=== PATIENT | female | born 2000 | race Caucasian/White ===

== ENCOUNTER 2024-06-26 11:16 | Emergency (ER) | payer OTHER, SELFPAY ==
[2024-06-26 11:24] VITALS: BP 126/65; PULSE 102; TEMP 37.2; O2SAT 98; BMI 27.4
[2024-06-26 11:51] LABS: Bilirubin Urine NEGATIVE (NEGATIVE); Blood Urine LARGE (NEGATIVE); Clarity Urine CLEAR (CLEAR); Color Urine YELLOW (YELLOW); Glucose Urine UA NEGATIVE (NEGATIVE); Ketones Urine 40 mg/dL (NEGATIVE); Leukocyte Esterase Urine NEGATIVE (NEGATIVE); Nitrite Urine NEGATIVE (NEGATIVE); Protein Urine NEGATIVE (NEG/TRACE); Specific Gravity Urine 1.015 (1.005-1.025); Urine Microscopic Indicated YES; Urobilinogen Urine 0.2 EU/dL (0.2-1.0)
[2024-06-26 11:52] LABS: HCG Qualitative Urine* NEGATIVE (NEGATIVE); Internal Control Within Normal Limits
--- NOTE | 2024-06-26 11:59 | ED.GENADUL1 ---
HPI HPI - General Adult General Chief complaint: Nausea/Vomiting/Diarrhea Stated complaint: VOMITTING Time Seen by Provider: 06/26/24 11:53 Source: patient Mode of arrival: walk-in Limitations: no limitations History of Present Illness HPI narrative: This 23-year-old female presents to the ED stating that she has had 4 episodes of vomiting since last night prior to which she had eaten food from a fast food restaurant. She reports nausea. She denies diarrhea, chills or fever, abdominal pain or urinary symptoms. She is on Suboxone and has not run out of it. In the past she has had UTI associated with similar symptoms. Related Data Home Medications ?Medication ?Instructions ?Recorded ?Confirmed buprenorphine 8 mg-naloxone 2 mg film 06/26/24 sublingual film ondansetron HCl 4 mg tablet 4 mg PO DAILY 06/26/24 06/26/24 Previous Rx's ?Medication ?Instructions ?Recorded ondansetron 4 mg disintegrating 4 mg PO Q6H PRN nausea and 06/26/24 tablet vomiting #10 tabs Allergies Allergy/AdvReac Type Severity Reaction Status Date / Time No Known Drug Allergies Allergy Verified 06/26/24 11:23 Opioid HPI Opioid Management Most Recent Opioid Data: No Data to Display Review of Systems ROS Status of ROS 10 or more systems reviewed and unremarkable except as noted in history and below PFSH PFSH Social History Little interest or pleasure in doing things: not at all Feeling down, depressed, or hopeless: not at all Exam Narrative Exam Narrative: Afebrile and nondistressed. Mildly tachycardic. HEENT exam is normal to inspection. Neck is supple. Lung sounds are clear to auscultation bilaterally with good air entry. Heart has regular rate and rhythm. Abdomen soft without tenderness. There are no masses or organomegaly. Lower extremities are warm and dry. She did not have calf tenderness or leg swelling. Speech and mentation are clear and intact. There is no facial asymmetry. She moves all extremities actively. Constitutional Vital Signs, click to edit/add: Last Vital Signs Temp 99.0 F 06/26/24 11:24 Pulse 102 H 06/26/24 11:24 Resp 18 06/26/24 11:24 BP 126/65 06/26/24 11:24 Pulse Ox 98 06/26/24 11:24 O2 Del Method Room Air 06/26/24 11:24 Course Vital Signs Vital signs: Vital Signs Temperature 99.0 F 06/26/24 11:24 Pulse Rate 102 H 06/26/24 11:24 Respiratory Rate 18 06/26/24 11:24 Blood Pressure 126/65 06/26/24 11:24 Pulse Oximetry 98 06/26/24 11:24 Oxygen Delivery Method Room Air 06/26/24 11:24 Temperature 99.0 F 06/26/24 11:24 Pulse Rate 102 H 06/26/24 11:24 Respiratory Rate 18 06/26/24 11:24 Blood Pressure 126/65 06/26/24 11:24 Pulse Oximetry 98 06/26/24 11:24 Oxygen Delivery Method Room Air 06/26/24 11:24 Medical Decision Making MDM Narrative Medical decision making narrative: Patient presents with nausea and vomiting without a good explanation for what may have triggered it. She is on opioid replacement therapy but it looks like she has not run out of her medication. Her evaluation does not show signs of dehydration and she has been treated with a liter of IV fluids. Her vomiting seems to either have slowed down or subsided. She has not had any vomiting in the ED. Upon discharge she is placed on Zofran and is to return anytime for worsening symptoms. Lab Data Labs: Lab Results 06/26/24 06/26/24 Range/Units 11:25 12:10 WBC 7.2 (4.0-11.0) 10^3/uL RBC 4.72 (4.20-5.40) 10^6/uL Hgb 13.4 (12.0-16.0) g/dL Hct 40.2 (36.0-48.0) % MCV 85.2 (81.0-99.0) fL MCH 28.4 (26.7-34.0) pg MCHC 33.3 (29.9-35.2) g/dL RDW 13.2 (11.0-15.0) % Plt Count 213 (150-450) 10^3/uL MPV 10.1 (9.5-13.5) fL Neut % (Auto) 90.5 H (43.0-75.0) % Lymph % (Auto) 5.4 L (20.5-60.0) % Custer % (Auto) 3.5 (1.7-12.0) % Eos % (Auto) 0.0 L (0.9-7.0) % Baso % (Auto) 0.3 (0.2-2.0) % Neut # (Auto) 6.5 (1.4-6.5) 10^3/uL Lymph # (Auto) 0.4 L (1.2-3.8) 10^3/uL Custer # (Auto) 0.3 (0.3-0.8) 10^3/uL Eos # (Auto) 0.0 (0.0-0.7) 10^3/uL Baso # (Auto) 0.0 (0.0-0.1) 10^3/uL Abs Immat Gran (auto) 0.02 (0.00-0.03) 10^3/uL Imm/Tot Granulo (auto) 0.3 (0.0-0.5) % Sodium 140 (136-145) mmol/L Potassium 3.7 (3.5-5.1) mmol/L Chloride 102 (98-107) mmol/L Carbon Dioxide 27.5 (21.0-32.0) mmol/L Anion Gap 14.2 BUN 9.0 (7.0-18.0) mg/dL Creatinine 0.72 (0.55-1.02) mg/dL Est GFR ( Amer) >60 (>=60 mL/min/1.73m^2) Est GFR (Non-Af Amer) >60 (>=60 mL/min/1.73m^2) BUN/Creatinine Ratio 12.5 Glucose 113 H (74-106) mg/dL Calcium 9.0 (8.5-10.1) mg/dL Total Bilirubin 0.8 (0.2-1.0) mg/dL AST 18 (15-37) U/L ALT 22 (14-59) U/L Alkaline Phosphatase 72 (46-116) U/L Total Protein 7.7 (6.4-8.2) g/dL Albumin 3.9 (3.4-5.0) g/dL Globulin 3.8 g/dL Albumin/Globulin Ratio 1.0 Lipase 13.0 L (16.0-77.0) U/L Urine Color Yellow (YELLOW) Urine Clarity Clear (CLEAR) Urine pH 6.0 (5.0-9.0) Ur Specific Pinson 1.015 (1.005-1.025) Urine Protein Negative (NEG/TRACE) mg/dL Urine Glucose (UA) Negative (NEGATIVE) mg/dL Urine Ketones 40 A (NEGATIVE) mg/dL Urine Occult Blood Large A (NEGATIVE) Urine Nitrite Negative (NEGATIVE) Urine Bilirubin Negative (NEGATIVE) Urine Urobilinogen 0.2 (0.2-1.0) EU/dL Ur Leukocyte Esterase Negative (NEGATIVE) Urine RBC 5-10 A (0-2) #/HPF Urine WBC 0-2 A (NONE SEEN) #/HPF Ur Squamous Epith Cells Few A (NONE/RARE) #/LPF Urine Crystals None seen (None Seen) #/HPF Urine Bacteria Trace A (NONE SEEN) #/HPF Urine Casts None seen (NONE SEEN) #/LPF Urine Mucus None seen (NONE SEEN) Ur Culture Indicated? No Urine HCG, Qual Negative (NEGATIVE) Discharge Plan Discharge Chief Complaint: Nausea/Vomiting/Diarrhea Clinical Impression: Vomiting Qualifiers: Vomiting type: unspecified Nausea presence: with nausea Qualified Code(s): R11.2 - Nausea with vomiting, unspecified Patient Disposition: Home, Self-Care Time of Disposition Decision: 13:04 Condition: Good Mode of Transportation: Private Vehicle Prescriptions / Home Meds: New ondansetron 4 mg tablet,disintegrating 4 mg PO Q6H PRN (Reason: nausea and vomiting) Qty: 10 0RF No Action buprenorphine-naloxone 8-2 mg film ondansetron HCl 4 mg tablet 4 mg PO DAILY Print Language: Tristanian Instructions: Acute Nausea and Vomiting (ED) Additional Instructions: Drink extra fluids. Zofran for nausea and vomiting as needed. Return for worsening symptoms. Referrals: Physician,Non-Staff, MD [Primary Care Provider] - 1 week
[2024-06-26 12:22] LABS: Bacteria Urine TRACE #/HPF (NONE SEEN); Mucus Urine NONE SEEN (NONE SEEN); Squamous Epithelial Cell Urine FEW #/LPF (NONE/RARE); WBC Urine 0-2 #/HPF (NONE SEEN)
[2024-06-26 12:23] LABS: Cast Seen? NONE SEEN #/LPF (NONE SEEN); Crystals Seen? None Seen #/HPF (None Seen)
[2024-06-26 12:23] LABS: Basophils Percent Auto 0.3 % (0.2-2.0); Hematocrit 40.2 % (36.0-48.0); Hemoglobin 13.4 g/dL (12.0-16.0); Immature Granulocytes Abs Auto 0.02 10^3/uL (0.00-0.03); Immature Granulocytes Pct Auto 0.3 % (0.0-0.5); Lymphocytes Absolute Auto 0.4 10^3/uL (1.2-3.8); Lymphocytes Percent Auto 5.4 % (20.5-60.0); Mean Corpuscular HGB Conc 33.3 g/dL (29.9-35.2); Mean Corpuscular Hemoglobin 28.4 pg (26.7-34.0); Mean Corpuscular Volume 85.2 fL (81.0-99.0); Mean Platelet Volume 10.1 fL (9.5-13.5); Monocytes Absolute Auto 0.3 10^3/uL (0.3-0.8); Monocytes Percent Auto 3.5 % (1.7-12.0); Neutrophils Absolute Auto 6.5 10^3/uL (1.4-6.5); Neutrophils Percent Auto 90.5 % (43.0-75.0); Platelet Count 213 10^3/uL (150-450); Red Blood Count 4.72 10^6/uL (4.20-5.40); Red Cell Distribution Width 13.2 % (11.0-15.0); White Blood Count 7.2 10^3/uL (4.0-11.0)
[2024-06-26 12:24] LABS: Urine Culture Indicated NO
[2024-06-26] MEDS: 0.9 % SODIUM CHLORIDE 1,000 ML 1000 ML IV (12:24)
[2024-06-26] MEDS: ONDANSETRON PF 4 MG/2 ML VIAL IV (12:28)
[2024-06-26 12:38] LABS: Alanine Aminotransferase 22 U/L (14-59); Albumin Level 3.9 g/dL (3.4-5.0); Alkaline Phosphatase 72 U/L (46-116); Anion Gap 14.2; Aspartate Amino Transferase 18 U/L (15-37); BUN Creatinine Ratio 12.5; Bilirubin Total 0.8 mg/dL (0.2-1.0); Carbon Dioxide 27.5 mmol/L (21.0-32.0); Chloride 102 mmol/L (98-107); Estimated GFR (African America >60 (>=60 mL/min/1.73m^2); Estimated GFR (Non-African Ame >60 (>=60 mL/min/1.73m^2); Globulin 3.8 g/dL; Glucose 113 mg/dL (74-106); Potassium 3.7 mmol/L (3.5-5.1); Sodium 140 mmol/L (136-145); Total Protein 7.7 g/dL (6.4-8.2)
[2024-06-26 13:23] VITALS: BP 117/67; PULSE 83; TEMP 37.4; O2SAT 99
== END 2024-06-26 13:26 | disposition home or self-care (01) ==
PROVIDERS: Emergency Provider Emergency Medicine
DX: R11.2 Nausea with vomiting, unspecified (principal); Z87.442 Personal history of urinary calculi; F11.20 Opioid dependence, uncomplicated
CPT/HCPCS: 36415; 80053; 81001; 83690; 84703; 85025; 96361; 96374; 99284; J2405

== ENCOUNTER 2024-10-24 19:24 | Emergency (ER) | payer OTHER, SELFPAY ==
[2024-10-24 19:28] VITALS: BP 136/80; PULSE 65; TEMP 36.5; O2SAT 100; BMI 31.1
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
--- NOTE | 2024-10-24 19:53 | CT_ITS ---
The [address] [address] Patient Name: CURTIS MANN MRN: [id number] date: 2000 Sex: F Assigned Patient Location: ER Current Patient Location: ER Accession/Order Number: [id number] Exam Date: 10/24/2024 21:26 Report Date: 10/24/2024 21:30 At the request of: JERMAINE ARCHER MD Procedure: CT lumbar spine wo con CT LUMBAR SPINE WITHOUT CONTRAST TECHNIQUE: Axial acquisition of the lumbar spine obtained with the sagittal and coronal reconstructed imaging.The CT exam was performed using one or more the following dose reduction techniques: Automated exposure control, adjustment of the MA and/or Kv according to patient size, or use of the iterative reconstruction technique. HISTORY: Right lower back pain radiation to the buttocks and right hip. 4 days duration COMPARISON: None FINDINGS: The last fully segmented vertebral pair is operationally defined as L5/S1. POST SURGERY CHANGES: None BONY ALIGNMENT: Adequate bony alignment identified. SPINAL CANAL:Mild narrowing of the central canals from L3 to S1. LUMBAR FRACTURE: None BONY LESIONS: None KIDNEYS: No hydronephrosis is identified. AORTA: No aortic aneurysm is seen. Mild L4-5 and L5 1 disc space narrowing. Mild facet degeneration L3-4 diffuse disc bulge. L4-5 midline disc protrusion L5-S1 midline disc protrusion Assessment of disc herniation limited with CT examination. CT/CT lumbar spine wo con IMPRESSION:Lower lumbar degeneration. Disc herniations at the L3-4, L4-5 and L5-S1 level. MRI can better assess disc herniation. Impression dictated by: Ish Holloway M.D. 10/24/2024 9:30 PM Dictation Location: [employer] Electronically authenticated by: [id number] Y Date: 10/24/2024 21:30
--- NOTE | 2024-10-24 19:56 | ED_ITS ---
HPI HPI - Back Pain/Injury General Chief Complaint: Back Pain/Injury Stated Complaint: BACK PAIN Time Seen by Provider: 10/24/24 19:49 Source: patient Mode of arrival: walk-in History of Present Illness HPI Narrative: back pain for 4 days. Denies injury. Points to lower lumbar sacral area as site of pain and right buttocks. pain radiates down to her knee when she is lying down. when she stands it radiates down to her right foot. She describes getting off the couch by rolling off onto her knees and then pushing herself up. No fever or nausea. No bowel or urinary complaints Related Data Home Medications ?Medication ?Instructions ?Recorded ?Confirmed buprenorphine 8 mg-naloxone 2 mg 1 film buccal BID 10/24/24 sublingual film lidocaine 5 % topical patch 1 patch topical Q24H 10/2410/24/24 methylprednisolone 4 mg tablets in 4 mg PO DAILY 10/2410/24/24 a dose pack Previous Rx's ?Medication ?Instructions ?Recorded ondansetron 4 mg disintegrating 4 mg PO Q6H PRN nausea and 06/26/24 tablet vomiting #10 tabs Allergies Allergy/AdvReac Type Severity Reaction Status Date / Time No Known Drug Allergies Allergy Verified 06/26/24 11:23 Opioid HPI Opioid Management Most Recent Opioid Data: 2 Last Pain Scale 10 Today, 19:37 Review of Systems 2 ROS0 Status of ROS 10 or more systems reviewed and unremark able except as noted in history and below PFSH PFSH Social History Little interest or pleasure in doing things: not at all Feeling down, depressed, or hopeless: not at all Exam Constitutional Vital Signs, click to edit/add: Last Vital Signs Temp 97.7 F 10/24/24 19:28 Pulse 65 10/24/24 19:28 Resp 20 10/24/24 19:28 BP 136/80 10/24/24 19:28 Pulse Ox 100 10/24/24 19:28 O2 Del Method Room Air 10/24/24 19:28 Common normals: average body habitus, oriented x3, healthy appearing, alert and well nourished General appearance: in distress HENMT Common normals: normocephalic and head/scalp atraumatic Eye Common normals: PERRL and EOMs intact bilaterally Respiratory Common normals: normal respiratory effort, no retractions, no use of accessory muscles and clear to auscultation bilaterally Cardio Common normals: regular rate, regular rhythm, S1 normal heart sound and S2 normal heart sound GI Common normals: Normal to inspection, nondistended, normoactive bowel sounds present, soft to palpation and non-tender Back & Pelvis Back image (female): 2 1. tender Extremity Common normals: normal to inspection and full ROM Other: right leg lift increases pain Neuro Common normals: oriented x3, CN's II-XII intact bilaterally, moves all extremities, no focal motor deficits and no sensory deficits noted Psych Appearance: grossly normal Course Vital Signs Vital signs: Vital Signs Temperature 97.7 F 10/24/24 19:28 Pulse Rate 65 10/24/24 19:28 Respiratory Rate 20 10/24/24 19:28 Blood Pressure 136/80 10/24/24 19:28 Pulse Oximetry 100 10/24/24 19:28 Oxygen Delivery Method Room Air 10/24/24 19:28 Temperature 97.7 F 10/24/24 19:28 Pulse Rate 65 10/24/24 19:28 Respiratory Rate 20 10/24/24 19:28 Blood Pressure 136/80 10/24/24 19:28 Pulse Oximetry 100 10/24/24 19:28 Oxygen Delivery Method Room Air 10/24/24 19:28 MDM - Back Pain/Injury MDM Narrative Medical decision making narrative: presents with right sciatica pain. pain increased over past 4 days. Exam findings c/w sciatica. WBC and CRP WNL. CT with findings of disc herniation. Patient treated with cocktail in the ER and pain is now more tolerable. Discharged and advised to follow up with the pain clinic. Provided a prescription of prednisone Lab Data Labs: Lab Results 10/24/24 10/24/24 Range/Units 20:15 21:15 WBC 9.9 (4.0-11.0) 10^3/uL RBC 4.89 (4.20-5.40) 10^6/uL Hgb 13.9 (12.0-16.0) g/dL Hct 41.2 (36.0-48.0) % MCV 84.3 (81.0-99.0) fL MCH 28.4 (26.7-34.0) pg MCHC 33.7 (29.9-35.2) g/dL RDW 12.6 (11.0-15.0) % Plt Count 227 (150-450) 10^3/uL MPV 11.1 (9.5-13.5) fL Neut % (Auto) 92.0 H (43.0-75.0) % Lymph % (Auto) 6.4 L (20.5-60.0) % Robertson % (Auto) 1.0 L (1.7-12.0) % Eos % (Auto) 0.1 L (0.9-7.0) % Baso % (Auto) 0.2 (0.2-2.0) % Neut # (Auto) 9.1 H (1.4-6.5) 10^3/uL Lymph # (Auto) 0.6 L (1.2-3.8) 10^3/uL Robertson # (Auto) 0.1 L (0.3-0.8) 10^3/uL Eos # (Auto) 0.0 (0.0-0.7) 10^3/uL Baso # (Auto) 0.0 (0.0-0.1) 10^3/uL Abs Immat Gran (auto) 0.03 (0.00-0.03) 10^3/uL Imm/Tot Granulo (auto) 0.3 (0.0-0.5) % ESR 19 (<=20) mm/hr Sodium 138 (136-145) mmol/L Potassium 3.8 (3.5-5.1) mmol/L Chloride 100 (98-107) mmol/L Carbon Dioxide 28.2 (21.0-32.0) mmol/L Anion Gap 13.6 BUN 8.0 (7.0-18.0) mg/dL Creatinine 0.53 L (0.55-1.02) mg/dL Est GFR ( Amer) >60 (>=60 mL/min/1.73m^2) Est GFR (Non-Af Amer) >60 (>=60 mL/min/1.73m^2) BUN/Creatinine Ratio 15.1 Glucose 123 H (74-106) mg/dL Lactate 1.0 (0.4-2.0) mmol/L Calcium 9.7 (8.5-10.1) mg/dL Total Bilirubin 0.8 (0.2-1.0) mg/dL AST 20 (15-37) U/L ALT 24 (14-59) U/L Alkaline Phosphatase 77 (46-116) U/L C-Reactive Protein <0.50 (<=0.50) mg/dL Total Protein 8.7 H (6.4-8.2) g/dL Albumin 4.5 (3.4-5.0) g/dL Globulin 4.2 g/dL Albumin/Globulin Ratio 1.1 Serum HCG, Qual Negative (NEGATIVE) Urine Color Lt. yellow (YELLOW) Urine Clarity Sl cloudy (CLEAR) Urine pH 6.5 (5.0-9.0) Ur Specific [place] 1.010 (1.005-1.025) Urine Protein Negative (NEG/TRACE) mg/dL Urine Glucose (UA) Negative (NEGATIVE) mg/dL Urine Ketones 15 A (NEGATIVE) mg/dL Urine Occult Blood Negative (NEGATIVE) Urine Nitrite Negative (NEGATIVE) Urine Bilirubin Negative (NEGATIVE) Urine Urobilinogen 0.2 (0.2-1.0) EU/dL Ur Leukocyte Esterase Negative (NEGATIVE) Urine RBC 0-2 (0-2) #/HPF Urine WBC 0-2 A (NONE SEEN) #/HPF Ur Squamous Epith Cells Moderate A (NONE/RARE) #/LPF Urine Crystals None seen (None Seen) #/HPF Urine Bacteria Trace A (NONE SEEN) #/HPF Urine Casts None seen (NONE SEEN) #/LPF Urine Mucus None seen (NONE SEEN) Ur Culture Indicated? No Imaging Data Chest x-ray: Radiologist's impression: ITS Impressions Lumbar Spine CT 10/24/24 19:53 IMPRESSION:Lower lumbar degeneration. Disc herniations at the L3-4, L4-5 and L5-S1 level. MRI can better assess disc herniation. Impression dictated by: Ish Holloway M.D. 10/24/2024 9:30 PM Dictation Location: [place] [address] Electronically authenticated by: [id number] Y Date: 10/24/2024 21:30 Discharge Plan Discharge Chief Complaint: Back Pain/Injury Clinical Impression: Sciatica Patient Disposition: Home, Self-Care Prescriptions / Home Meds: No Action buprenorphine-naloxone 8-2 mg film 1 film buccal BID ondansetron 4 mg tablet,disintegrating 4 mg PO Q6H PRN (Reason: nausea and vomiting) Qty: 10 0RF lidocaine 5 % adhesive patch,medicated 1 patch topical Q24H methylprednisolone 4 mg tablets,dose pack 4 mg PO DAILY Patient Comments: as directed Print Language: Maltese Instructions: Sciatica (ED) Additional Instructions: follow up with pain specialist and with your family doctor Referrals: RAZIA MCKEON [Primary Care Provider, GENERAL EDUCATION PROFESSOR] - 1 week
[2024-10-24] MEDS: MAGNESIUM SULFATE IN WATER 2 GM/50 ML PREMIX IV (20:13)
[2024-10-24] MEDS: METHYLPREDNISOLONE SOD SUCC PF 125 MG/2 ML VIAL IVP (20:13)
[2024-10-24 20:32] LABS: Hematocrit 41.2 % (36.0-48.0); Hemoglobin 13.9 g/dL (12.0-16.0); Immature Granulocytes Abs Auto 0.03 10^3/uL (0.00-0.03); Immature Granulocytes Pct Auto 0.3 % (0.0-0.5); Lymphocytes Absolute Auto 0.6 10^3/uL (1.2-3.8); Mean Corpuscular HGB Conc 33.7 g/dL (29.9-35.2); Mean Corpuscular Hemoglobin 28.4 pg (26.7-34.0); Mean Corpuscular Volume 84.3 fL (81.0-99.0); Platelet Count 227 10^3/uL (150-450); Red Blood Count 4.89 10^6/uL (4.20-5.40); White Blood Count 9.9 10^3/uL (4.0-11.0)
[2024-10-24 20:44] LABS: Alanine Aminotransferase 24 U/L (14-59); Albumin Globulin Ratio 1.1; Albumin Level 4.5 g/dL (3.4-5.0); Alkaline Phosphatase 77 U/L (46-116); Anion Gap 13.6; Aspartate Amino Transferase 20 U/L (15-37); Blood Urea Nitrogen 8.0 mg/dL (7.0-18.0); Calcium 9.7 mg/dL (8.5-10.1); Carbon Dioxide 28.2 mmol/L (21.0-32.0); Chloride 100 mmol/L (98-107); Estimated GFR (African America >60 (>=60 mL/min/1.73m^2); Estimated GFR (Non-African Ame >60 (>=60 mL/min/1.73m^2); Globulin 4.2 g/dL; Glucose 123 mg/dL (74-106); Potassium 3.8 mmol/L (3.5-5.1); Sodium 138 mmol/L (136-145); Total Protein 8.7 g/dL (6.4-8.2)
[2024-10-24 20:49] LABS: Lactate/Lactic Acid 1.0 mmol/L (0.4-2.0)
[2024-10-24] MEDS: KETOROLAC TROMETHAMINE 30 MG/ML VIAL IVP (21:39)
[2024-10-24 21:47] LABS: Glucose Urine UA NEGATIVE (NEGATIVE)
[2024-10-24 21:55] LABS: Cast Seen? NONE SEEN #/LPF (NONE SEEN); Crystals Seen? None Seen #/HPF (None Seen); Urine Culture Indicated NO
== END 2024-10-24 22:34 | disposition home or self-care (01) ==
PROVIDERS: Emergency Provider Internal Medicine; PCP Nurse Practitioner
DX: M54.30 Sciatica, unspecified side (principal); M51.369 Other intervertebral disc degeneration, lumbar region without mention of lumbar back pain or lower extremity pain; M54.50 Low back pain, unspecified; M54.16 Radiculopathy, lumbar region
CPT/HCPCS: 36415; 72131; 80053; 81001; 83605; 84703; 85025; 85652; 86140; 96365; 96375; 99285; J1885; J2919; J3475

== ENCOUNTER 2025-01-18 15:58 | Emergency (ER) | payer OTHER, SELFPAY ==
--- OUTSIDE RECORDS SUMMARY | 2025-01-08 07:30 | XMS_ITS | Encounter Summary ---
Author Organization [facility] tem Address [id number] [address] [place] [address] Care Team Providers Care Yard Coordinator Name Role Phone Stephany Cleo Walker APRN-CORE MANAGER Primary Care Provider [phone] Reason for Visit * ReasonCommentsBack Pain Encounter Details DateTypeDepartmentCare Team (Latest Contact Info)Xhxcktwtmvn16/28/2025 8:30 AM EDTOffice Visit [facility] [address] [place] [id number] Alex Castelan PA [address] [facility] [place], [place] [id number] Lumbosacral spondylosis without myelopathy (Primary Dx) Social History Tobacco UseTypesPacks/DayYears UsedDateSmoking Tobacco: Every DayCigarettes Smokeless Tobacco: NeverAlcohol UseStandard Drinks/WeekCommentsNo0 (1 standard drink = 0.6 oz pure alcohol)ChildcareAnswerDate RecordedChildcareUnknown 08/21/2018EmploymentAnswerDate EsuficoyVhvopygkhgQxxpkea65/10/2019Hunger ScreeningAnswerDate RecordedWithin the past 12 months we worried whether our food would run out before we got money to buy more.Never True01/08/2025Within the past 12 months the food we bought just didn't last and we didn't have money to get more.Never True01/08/2025Purpose - LifeAnswerDate RecordedPurpose and direction in bywzMlutcul47/10/2021CommentsNoSex and Gender Information ValueDate RecordedSex Assigned at BirthNot on fileLegal DcrKxicya60/04/2015 12:03 PM EDTGender IdentityNot on fileSexual OrientationNot on filedocumented as of this encounter Last Filed Vital Signs Vital SignReadingTime TakenCommentsBlood Mbiyhich846/6610 8:57 AM EDT Gzpse31878/28/2025 8:57 AM EDTTemperature--Respiratory Dcvq0966 8:57 AM EDTOxygen Agqkzjkydt48%01/08/2025 8:57 AM EDTInhaled Oxygen Concentration-- Mvfnbr71.4 kg (186 lb)01/08/2025 8:57 AM EDTHeight--Body Mass Index30.95 11/08/2024 9:19 AM EDTdocumented in this encounter Progress Notes * RUBEN Hernandez - 01/08/2025 8:30 AM EDT [facility] [address] [place] [address] Patient: Lynette James Sex: female : 2000 Age: 24 y.o. PCP: CLEO MCKEON, RONY-CORE MANAGER 01/08/2025 Lynette James is here for a(n) follow up from physical therapy. Patient reports physical therapy and medrol dose pack seemed to help significantly. Currently has no pain but it can increasewith normal daily activities. Chief Complaint Patient presents with Back Pain HPI: PT 8 visits 10/2024 Total Rehab Back Pain Chronicity: 6 years with increased pain since 10/18/2024. The current episode started more than 1 year ago. The problem occurs intermittently. The problem has been gradually improving since onset. The pain is present in the lumbar spine and sacro-iliac. The pain does not radiate. The pain is at a severity of 0/10 (can get up to 10/10 with ADLs). The patient is experiencing no pain (but has been severe). The pain is Worse during the night. The symptoms are aggravated by standing, coughing, twisting and bending. Stiffness is present All day. Associated symptoms include numbness (RLE), tingling (RLE) and weakness (RLE). Pertinent negatives include no bladder incontinence, bowel incontinence or leg pain. (When pain is severe certain movement gets shocking sensation to joints in right leg) She has tried chiropractic manipulation, ice, heat and NSAIDs (mobic, ASA,Flexeril mild , MDP-mod) for the symptoms. The treatment provided mild relief. The effect of pain on patient's ADLS: Moderate Impairment. Past Medical History: Diagnosis Date Low back pain Past Surgical History: Procedure Laterality Date WISDOM TOOTH EXTRACTION No Known Allergies History reviewed. No pertinent family history. Social History Socioeconomic History Marital status: Single Spouse name: Not on file Number of children: Not on file Years of education: Not on file Highest education level: Not on file Occupational History Not on file Tobacco Use Smoking status: Every Day Current packs/day: 0.10 Types: Cigarettes Smokeless tobacco: Never Substance and Sexual Activity Alcohol use: No Drug use: No Sexual activity: Yes Other Topics Concern Not on file Social History Narrative Not on file Social Drivers of Health Financial Resource Strain: Not on file Food Insecurity: No Food Insecurity (01/08/2025) Hunger Screening Food Insecurity - Worry: Never True Food Insecurity - Inability: Never True Transportation Needs: Not on file Physical Activity: Not on file Stress: Not on file Social Connections: Not on file Interpersonal Safety: Not on file Housing Instability: Not on file Review of Systems Constitutional: Negative. HENT: Positive for congestion and sore throat. Eyes: Negative. Respiratory: Negative. Cardiovascular: Negative. Gastrointestinal: Negative. Negative for bowel incontinence. Endocrine: Negative. Genitourinary: Negative. Negative for bladder incontinence. Musculoskeletal: Positive for back pain. Skin: Negative. Allergic/Immunologic: Negative. Neurological: Positive for tingling (RLE), weakness (RLE) and numbness (RLE). Hematological: Negative. Psychiatric/Behavioral: Negative. Vital Signs: BP 125/66 (BP Site: Left Arm, BP Postition: Sitting) Pulse 114 Resp 18 Wt 84.4 kg (186 lb) SpO2 99% BMI 30.95 kg/m?? Physical Exam: GENERAL - Healthy patient that appears stated age. HEENT - Normocephalic / Atraumatic, Extraoccular movements intact, trachea midline, thyroid within normal limits. CV - pulse regular, Warm extremities with appropriate color of nailbeds. RESP - No obvious wheezing, No Shortness of Breath, No overexertion response to exam maneuvers. COORDINATION - remains intact. PSYCH - Alert and Oriented x4, Attentive and appropriate, constitutionally normal, displays normal mood and affect per situation, answered questions appropriately during examination, demonstrated appropriate attention during discussion, demonstrated appropriate cognitive reasoning and understandingof the medical condition by asking appropriate questions regarding the diagnosis and risks/benefits/alternatives of treatment modalities. No obvious deficits in memory, reasoning, or intellect. Lumbar: SKIN - No rashes or bruising in the area of the patient???s pain. LYMPH NODES - demonstrate no obvious enlargement. EXTREMITIES - Lower extremities are warm, with minimal edema and palpable pulses. No significant tenderness to palpation noted in the lumbar spine and paraspinal musculature. Mild pain is elicited with flexion, extension, and lateral rotation of the lumbar spine. Range of motion is not diminished with these motions. Facet palpation is negative for significant pain and facet loading maneuvers elicit only mild pain that is not concordant with the patient???s normal pain complaint s. STRENGTH - noted to be 5 out of 5 all muscle groups bilateral lower extremities including muscles involving hip flexion and abduction, knee flexion and extension, as well as foot dorsiflexion and plantarflexion. No notable atrophy, fasciculations or spasm. SENSORY - No notable sensory deficits in the bilateral lower extremities to touch or pinprick in all dermatomal distributions. Straight Leg Raise is negative bilaterally. Gait is normal. Assessment/Treatment Plan: Lynette was seen today for back pain. Diagnoses and all orders for this visit: Lumbosacral spondylosis without myelopathy Other orders - methylPREDNISolone (MEDROL, STEPHANIE,) 4 mg tablet; follow package directions Medrol dose pack Monitor Follow up PRN The medications I have prescribed have been reviewed for medication interactions/contraindications and/or for upcoming procedures: continue current medication regimen without any changes. DISCUSSION: Treatment options discussed with patient and all questions answered to patient's satisfaction. Discussed the rules and regulations surrounding prescription of opioids and compliance at length. Failure to follow the rules and regulation will result in tapering and discontinuation of medications if applicable. Prescribed medication that requires intensive monitoring for toxicity We do not currently prescribeany controlled substance from this practice. Treatment plans discussed but not opted for at this time: Lumbar MRI. Patient would like to proceed with the current outlined treatment plan before moving forward with any other options. At this time it does appear that the patient???s pain is under adequate control with conservative care. It is felt that we should continue this approach and continue to monitor these symptoms and address them again in the future if they become more problematic. This approach was discussed with the patient and they are in agreement. The spine model was demonstrated and Xray was reviewed and used to explain the condition. OARRS: Reviewed. Scribe Statement: IYesika CNA, scribed for and in the presence of RUBEN HERNANDEZ who performed the above service. Yesika Simon CNA 01/08/25 0929 RUBEN Hernandez 01/08/25 1147 documented in this encounter Plan of Treatment Not on file documented as of this encounter Visit Diagnoses Diagnosis Lumbosacral spondylosis without myelopathy- Primary documented in this encounter Care Teams Team MemberRelationshipSpecialtyStart DateEnd Date Cleo Mckeon, ANGLE DOZER OPERATOR-CORE MANAGER [address] [place] [address] PCP - GeneralNurse Practitioner10/25/24documented as of this encounter
--- OUTSIDE RECORDS SUMMARY | 2025-01-08 22:59 | XMS_ITS | Continuity of Care Document ---
Author Organization [facility] Address Unknown Care Team Providers Care Equine Vet Name Role Phone Cleo Hammond Primary Care Physician [phone] Encounter FT_FIN [id number] Date(s): 01/08/25 - 01/08/[address] [address] Discharge Disposition: Home (Routine DC) Attending Physician: ASAEL PLASCENCIA CNP Admitting Physician: ASAEL PLASCENCIA CNP Referring Physician: ASAEL PLASCENCIA CNP Encounter Type: Outpatient Allergies, Adverse Reactions, Alerts No Known Medication Allergies Treatment Plan Future Scheduled Tests Radiology* MA Mamm Screen w/CAD if perf and 3D Biran 11/28/24 Medications buprenorphine-naloxone 8 mg-2 mg sublingual film 1 EA, SubLingual, Daily, Refill(s) 0 Start Date: 11/02/24 Status: Ordered Medication Dispense Status: Completed Total Allowed Fills: 1 Fills Dispensed: 0 meloxicam 15 mg Tab 15 mg = 1 tab(s), Oral, Daily, # 30 tab(s), Refills(s) 0, Pharmacy: [id number], [id number], cm, 11/02/24 11:17:00 EDT, Height/Length Dosing, 79.6, kg, 11/02/24 11:17:00 EDT, Weight Dosing Start Date: 11/02/24 Status: Ordered Medication Dispense Status: Completed Quantity: 30.0 Unit: tab(s) Total Allowed Fills: 1 Fills Dispensed: 0 Indications: Personal history of nicotine dependence; Body mass index [BMI] 29.0-29.9, adult; Otherintervertebral disc displacement, lumbar region; Problem List ConditionConfirmationCourseEffective DatesStatusHealth StatusInformantLumbar herniated discConfirmedActive Social History Social History TypeResponseSmoking StatusFormer smoker, quit more than 30 days ago; Tobacco Use: stopped 2023;Never; Type: Cigarettes; Ready to change: No; Concerns about tobacco use in household: No; Smoking Cessation Yes entered on: 11/28/24Birth SexFemaleSex RepresentationFemale (finding) Patient Care team information Care Team Personnel Name: Cleo Genao Position: [facility] Ambulatory - Primary Care - BEBO Member Role: Primary Care Physician Address: [address] [place] [address]- Telecom: Care Team Related Persons Name: June Name: June Insurance Providers Guarantor name: CURTIS Funk [facility]ly [facility] Information #: 1 Payer: [facility] Payer Identifier: [id number] Member Number: [id number] Group Number: [id number] Subscriber Identifier: [id number] Relationship to Subscriber: self Coverage Type: MEDICAID Coverage Verification Date: 25 Telecom: [phone] Address: [address]
[2025-01-18 16:05] VITALS: BP 107/77; PULSE 102; TEMP 38; O2SAT 96; BMI 30.6
--- NOTE | 2025-01-18 16:20 | XR_ITS ---
[place] [id number] Patient Name: CURTIS MANN MRN: [id number] date: 2000 Sex: F Assigned Patient Location: ER Current Patient Location: ED.MAIN Accession/Order Number: [id number] Exam Date: 01/18/2025 16:33 Report Date: 01/18/2025 16:52 At the request of: MAGAN MIRANDA Procedure: XR chest 1V Plain film chest Single view HISTORY: Cough and fever COMPARISON: 04/09/2016 FINDINGS: SUPPORT DEVICES: None POSTSURGICAL CHANGES: None HEART: Within normal limits PULMONARY CONCEPCION: Within normal limits MEDIASTINUM: Unremarkable LUNGS AND PLEURA: No acute lung process, pleural effusion or pneumothorax identified. BONY STRUCTURES: Intact ADDITIONAL FINDINGS None XR/XR chest 1V IMPRESSION: No acute process. Impression dictated by: Ish Holloway M.D. 01/18/2025 4:52 PM Dictation Location: [place] Electronically authenticated by: [id number] Y Date: 01/18/2025 16:52
--- NOTE | 2025-01-18 16:22 | ED_ITS ---
HPI HPI - General Adult General Chief complaint: Upper Respiratory Infection Stated complaint: Cough, painful swallowing, possible Strep Time Seen by Provider: 01/18/25 16:07 Source: patient Mode of arrival: walk-in History of Present Illness HPI narrative: Patient is a 24-year-old female that presents with complaints of sore throat, cough, nasal congestion and runny nose for about a week. Yesterday she started feeling feverish with cold chills but did not have a thermometer. She does have a headache and had some nausea this morning. No vomiting or diarrhea. No chest pain, shortness of breath, or abdominal pain. Related Data Home Medications ?Medication ?Instructions ?Recorded ?Confirmed buprenorphine 8 mg-naloxone 2 mg 1 film buccal BID 01/18/25 sublingual film Previous Rx's ?Medication ?Instructions ?Recorded azithromycin 250 mg tablet See Rx Instructions PO .COM PLEX #6 01/18/25 (Zithromax Z-Iam) tabs Allergies Allergy/AdvReac Type Severity Reaction Status Date / Time No Known Drug Allergies Allergy Verified 01/18/25 16:04 Opioid HPI Opioid Management Most Recent Opioid Data: Last Pain Scale 10 10/24/24, 19:37 Review of Systems ROS Status of ROS 10 or more systems reviewed and unremark able except as noted in history and below PFSH PFSH Social History Little interest or pleasure in doing things: not at all Feeling down, depressed, or hopeless: not at all Exam Narrative Exam Narrative: General: No distress, nontoxic-appearing, age-appropriate Skin: Warm, dry, no pallor. No rash. Head: Normocephalic, atraumatic. Neck: Supple, tender anterior cervical lymph nodes Eye: Pupils are equal, round and EOMI. No scleral icterus. Ears, Nose, Mouth, and Throat: No nasal mucosal hypertrophy. Ear canals erythematous bilaterally, TMs without bulging, landmarks visualized. Oral mucosa is moist, posterior oropharynx erythema without exudate, uvula is mid- line Cardiovascular: Regular Rate and Rhythm without murmur, gallop or rub. Respiratory: No accessory muscle use or respiratory distress. Lungs are clear to auscultation, no wheezing, rales or rhonchi Chest Wall: no tenderness Musculoskeletal: Full ROM of all extremities, no calf or popliteal tenderness GI: Abdomen is soft, non-distended, non tender to palpation. No masses appreciated. No rebound, guarding, or rigidity noted. Neurological: A&O x4. No cranial nerve dysfunction observed. No truncal ataxia. Moves all extremities. Sensation intact. Psychiatric: Cooperative and interactive. Normal mood and affect. Constitutional Vital Signs, click to edit/add: Last Vital Signs Temp 101.9 F H 01/18/25 17:39 Pulse 107 H 01/18/25 17:39 Resp 18 01/18/25 17:39 BP 114/74 01/18/25 17:39 Pulse Ox 100 01/18/25 17:39 O2 Del Method Room Air 01/18/25 16:05 Course Vital Signs Vital signs: Vital Signs Temperature 100.4 F 01/18/25 16:05 Pulse Rate 102 H 01/18/25 16:05 Respiratory Rate 18 01/18/25 16:05 Blood Pressure 107/77 01/18/25 16:05 Pulse Oximetry 96 01/18/25 16:05 Oxygen Delivery Method Room Air 01/18/25 16:05 Temperature 101.9 F H 01/18/25 17:39 Pulse Rate 107 H 01/18/25 17:39 Respiratory Rate 18 01/18/25 17:39 Blood Pressure 114/74 01/18/25 17:39 Pulse Oximetry 100 01/18/25 17:39 Oxygen Delivery Method Room Air 01/18/25 16:05 Medical Decision Making [facility] Narrative Medical decision making narrative: This is a 24-year-old female with about 1 week of sore throat, productive cough, headache, nausea, runny nose, nasal congestion and fever that started yesterday. No chest pain, shortness of breath, abdominal pain, vomiting, or diarrhea. On exam patient is in no distress, nontoxic-appearing. Very mild tachycardia heart rate 102, BP stable. Febrile at 100.4. Chest x-ray, strep A, influenza A/B, and COVID ordered. Ibuprofen 600 mg ordered. Decadron 10 mg ordered. COVID?19 negative, strep swab negative, influenza negative, CXR no acute process. Repeat vitals temp 101.9, still tachy at 107 likely from fever, 100% O2 saturation on room air, no respiratory distress. 1000 mg of Tylenol ordered. I discussed results with patient. Although initial findings suggest a viral URI, the patient?s persistent symptoms for 7 days with worsening fever (now 101.9?F) raise concern for a developing bacterial component (e.g., early bacterial sinusitis, atypical bronchitis, or lower respiratory tract infection not yet radiographically evident). Given patient discomfort, persistent fever, and duration of illness, a short course of azithromycin was started empirically after shared decision-making, to cover possible early bacterial or atypical inf ection while minimizing risk of broader antibiotic exposure. Patient was advised to complete the full course, monitor for worsening symptoms, and follow up with her primary care provider. If no improvement within 48?72 hours, further evaluation (including repeat chest imaging or additional labs) is warranted. Patient was discharged in stable condition with plans for follow-up with her PCP. Differential Diagnosis Differential Diagnosis: Viral URI, strep pharyngitis, COVID-19, influenza Lab Data Lab results reviewed: Yes I reviewed the patient's lab results Labs: Lab Results 01/18/25 Range/Units 16:10 Influenza Type A Ag Negative Influenza Type B Ag Negative SARS-CoV-2 Ag (CV2AG) Negative (NEGATIVE) Streptococcus Screen Negative Imaging Data Chest x-ray: Attestation: I have reviewed the pertinent imaging results. Radiologist's impression: ITS Impressions Chest X-Ray 01/18/25 16:20 IMPRESSION: No acute process. Impression dictated by: Ish Holloway M.D. 01/18/2025 4:52 PM Dictation Location: [place] [address] Electronically authenticated by: [id number] Y Date: 01/18/2025 16:52 Discharge Plan Discharge Chief Complaint: Upper Respiratory Infection Clinical Impression: Upper respiratory infection Patient Disposition: Home, Self-Care Time of Disposition Decision: 17:02 Condition: Good Mode of Transportation: Private Vehicle Prescriptions / Home Meds: New azithromycin [Zithromax Z-Iam] 250 mg tablet See Rx Instructions .ROUTE .COMPLEX Qty: 6 0RF Rx Instructions: For 250 mg dose pack: take 500 mg today (day 1), then 250 mg for 4 days (days 2-5) No Action buprenorphine-naloxone 8-2 mg film 1 film buccal BID Print Language: Maori Instructions: Upper Respiratory Infection (ED) Additional Instructions: Home Care / Symptom Relief * Hydration: Drink plenty of water, juice, or broth to stay hydrated. * Rest: Get adequate sleep and avoid strenuous activity. * Fever/Headache Relief: * Acetaminophen (Tylenol) 500?650 mg every 4?6 hours as needed (do not exceed 3,000 mg in 24 hours) * OR ibuprofen (Advil/Motrin) 200?400 mg every 6?8 hours as needed (take with food, do not exceed 1,200 mg in 24 hours unless directed) * Nasal Congestion: * Saline nasal spray or irrigation as needed * Use a humidifier if air is dry * Sore Throat: * Warm saltwater gargles (? tsp salt in 8 oz warm water) * Throat lozenges or honey * Cough: Honey can soothe. Jyuq-ckr-hkgsqgj cough medications may be used if desired. Go to the ER or call 911 if you experience: * Shortness of breath or difficulty breathing * Chest pain or pressure * Fever >=01.5?F / 38.6?C or persistent high fever * Severe headache, stiff neck, confusion, or new neurological symptoms * Persistent vomiting, dehydration, or inability to keep fluids down Follow-Up * Primary care provider: Within 5?7 days if symptoms do not improve * Return sooner if symptoms worsen or new symptoms develop Referrals: RAZIA MCKEON [Primary Care Provider, BULK SUGAR HANDLER] - 1 week Discharge Date/Time: 01/18/25 18:42
[2025-01-18 16:43] LABS: SARS-CoV-2 Ag NEGATIVE (NEGATIVE)
--- OUTSIDE RECORDS SUMMARY | 2025-01-18 16:46 | XMS_ITS | Clinical Summary ---
Author Organization [facility] Address [id number] [address] [place] [address] Care Team Providers Care Metal Drill Operator Name Role Phone Cleo Hammond Denise URIBE-GAS BLENDER Primary Care Provider [phone] Allergies No known active allergies Medications MedicationSigDispense QuantityRefillsLast FilledStart DateEnd DateStatus prochlorperazine (COMPAZINE) 10 mg tablet Take 1 tablet (10 mg total) by mouth 2 (two) times a day as needed for nausea or vomiting. 10 tablet 05/24/2023ctive Additional Information Patient not taking.Reason: Not available, Reported on 01/08/2025 cyclobenzaprine (FLEXERIL) 10 mg tablet Take 1 tablet (10 mg total) by mouth 2 (two) times a day as needed for muscle spasms. 10 tablet 11/06/2023ctive Additional Information Patient not taking.Reason: Not available, Reported on 01/08/2025 meloxicam (MOBIC) 7.5 mg tablet Take 1 tablet (7.5 mg total) by mouth in the morning.Active buprenorphine-naloxone (SUBOXONE) 8-2 mg [address] tablet [address] 1 tablet under the tongue in the morning.Active methylPREDNISolone (MEDROL, STEPHANIE,) 4 mg tablet follow package directions 21 tablet 01/08/2025tive methylPREDNISolone (MEDROL, STEPHANIE,) 4 mg tablet follow package directions 21 tablet Discontinued Active Problems No known active problems Encounters DateTypeDepartmentCare OdrqNocazkvxqbs58/28/2025 8:30 AM EDTOffice Visit [facility] [address] [place] [address] Alex Castelan PA Lumbosacral spondylosis without myelopathy (Primary Dx)01/07/2025Travel 12/12/20249819Ylepmu93/02/5378Tswqsm34/28/2025 9:00 AM EDTOffice Visit [facility] [address] [place] [address] Alex Castelan PA Lumbosacral spondylosis without myelopathy (Primary Dx)11/08/2024Travel 10/24/2024Documentation [facility] [address] [place] [address] Tramaine Berry RN 10/23/2024 10:37 PM EDT - 10/23/2024 11:06 PM EDTEmergency [facility] [address] [place] [address] Cody Bridges, Acute right-sided low back pain with right-sided sciatica (Primary Dx) Discharge Disposition: Home10/23/2024Travelfrom Last 3 Months Immunizations ImmunizationAdministration DatesNext SfcPzze1106/03/2020 Social History Tobacco UseTypesPacks/DayYears UsedDateSmoking Tobacco: Every DayCigarettes Smokeless Tobacco: Never Tobacco Cessation:Ready to Q uit: Not Asked; Counseling Given: Not Answered Alcohol UseStandard Drinks/WeekCommentsNo0 (1 standard drink = 0.6 oz pure alcohol)ChildcareAnswerDate UsisewjkBblynarpzVfdjtya34/10/2019EmploymentAnswer Date CctmlpusJarrhrycohTiruvnd03/10/2019Hunger ScreeningAnswerDate Recorded Within the past 12 months we worried whether our food would run out before we got money to buy more.Never True01/08/2025Within the past 12 months the food we bought just didn't last and we didn't have money to get more.Never True 01/08/2025Purpose - LifeAnswerDate RecordedPurpose and direction in lifeUnknown 1CommentsNoSex and Gender InformationValueDate RecordedSex Assigned at BirthNot on fileLegal BueThisec99/04/2015 12:03 PM EDTGender IdentityNot on fileSexual OrientationNot on file Last Filed Vital Signs Vital SignReadingTime TakenCommentsBlood Oiweydtz311/6610 8:57 AM EDT Sggid24759/28/2025 8:57 AM SAJMrowhsqiqdr15.6 ??C (97.9 ??F)10/23/2024 10:41 PM EDTRespiratory Lhow9534 8:57 AM EDTOxygen Igiygtslkm24%01/08/2025 8:57 AM EDTInhaled Oxygen Concentration--Eqmseb53.4 kg (186 lb)01/08/2025 8:57 AM EDT Lregbb071.1 cm (5' 5 )11/08/2024 9:19 AM EDTBody Mass Index30.9508 9:19 AM EDT Plan of Treatment Health MaintenanceDue DateLast DoneCommentsTobacco Xwjqltqjof44/05/1999 Depression Cilwwfvjp45/05/2011dult BMI Follow Up Plan2016Pap Smear 11/17/2019Influenza Lekpgvb29/11/2015, 02/13/2013, 01/25/2012, Additional history existsAdult BMI Eezxrexyr39Tobacco Tvqckbnxl22DTaP,Tdap and Td Vaccines (8 - Td or Tdap) , 01/28/2010, 08/02/2003, Additional history exists Medical Devices Not on file Insurance Advance Directives * Full Code (Latest Code Status on File) Date ActivatedDate MrvomrehsnrGefqwwnh60/21/2021 5:39 PM10 8:50 PM Care Teams Team MemberRelationshipSpecialtyStart DateEnd Date Cleo Hammond, BADGER DISTILLER OPERATOR-GAS BLENDER [address] [place], [place] [id number] PCP - GeneralNurse Practitioner10/25/24
--- OUTSIDE RECORDS SUMMARY | 2025-01-18 16:46 | XMS_ITS | Clinical Summary ---
Author Organization [facility] Healthcare Address [address] [place] [address] Care Team Providers Care Medical Educator Name Role Phone Unavailable Primary Care Provider Unavailabl e Social History Tobacco UseTypesPacks/DayYears UsedDateSmoking Tobacco: Never Assessed CommentsUnknownSex and Gender InformationValueDate RecordedSex Assigned at Not on fileLegal NiiMuqubp08/15/2023 11:47 PM EDTGender IdentityNot on file Sexual OrientationNot on file Plan of Treatment Not on file
--- OUTSIDE RECORDS SUMMARY | 2025-01-18 16:46 | XMS_ITS | Encounter Summary ---
Author Organization [facility] Address [id number] [address] [place] [address] Care Team Providers Care Caster Helper Name Role Phone Cleo Hammond APRN-MOP MAN Primary Care Provider [phone] Encounter Details DateTypeDepartmentCare Team (Latest Contact Info)Nmysvrdxtek14/27/2025Travel Social History Tobacco UseTypesPacks/DayYears UsedDateSmoking Tobacco: Every DayCigarettes Smokeless Tobacco: NeverAlcohol UseStandard Drinks/WeekCommentsNo0 (1 standard drink = 0.6 oz pure alcohol)ChildcareAnswerDate RecordedChildcareUnknown 08/21/2018EmploymentAnswerDate RxhnxefrKdvxrhqupeRhhasrj55/10/2019Hunger ScreeningAnswerDate RecordedWithin the past 12 months we worried whether our food would run out before we got money to buy more.Never True01/08/2025Within the past 12 months the food we bought just didn't last and we didn't have money to get more.Never True01/08/2025Purpose - LifeAnswerDate RecordedPurpose and direction in wdtlHsruunp07/10/2021CommentsNoSex and Gender Information ValueDate RecordedSex Assigned at BirthNot on fileLegal HbrMpwruy25/04/2015 12:03 PM EDTGender IdentityNot on fileSexual OrientationNot on filedocumented as of this encounter Plan of Treatment Not on file documented as of this encounter Visit Diagnoses Not on filedocumented in this encounter Care Teams Team MemberRelationshipSpecialtyStart DateEnd Date Cleo Hammond, BILLIARD TABLE REPAIRER-MOP MAN [address] [place] [address] PCP - GeneralNurse Practitioner10/25/24documented as of this encounter
[2025-01-18] MEDS: IBUPROFEN 600 MG TABLET PO (16:47)
[2025-01-18] MEDS: DEXAMETHASONE SOD PHOS 10 MG/ML VIAL PO (16:47)
--- OUTSIDE RECORDS SUMMARY | 2025-01-18 16:47 | XMS_ITS | CCD ---
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 108/74 Pulse 72 Resp 18 Ht 165.1 cm (5' 5 ) Wt 80.3 kg (177 lb) LMP 10/10/2024 (Approximate) SpO2 100% BMI 29.45 kg/m Physical Exam: GENERAL - Healthy patient that [...] or bruising in the area of the patient s pain. LYMPH NODES - demonstrate no obvious enlargement. EXTREMITIES - Lower extremities are warm, with minimal edema and palpable pulses. Tenderness to palpation noted in the lumbar spine and paraspinal musculature. Pain is elicited withflexion, extension, and lateral rotation of the lumbar spine. Range of motion is diminished with these motions due to pain. Facet palpation is noted to be somewhat tender and facet loading maneuvers are mildly positive, but not concordant with the patient s normal pain complaints. STRENGTH - noted to be 5 out [...] for this visit: Lumbosacral spondylosis without myelopathy - Ambulatory referral to Physical Therapy; Future Physical/Aquatic Therapy - for lumbar pain It is felt that the patient will benefit from a course of physical therapy focusing on the above mentioned diagnosis. We will recommend that the physical therapist fully evaluate and treat at their discretion considering the modalities that are most useful for the condition being treated. This may i nclude modalities of comfort including moist heat, ultrasound, and TENS therapy. It may also utilize manual therapy and myofascial release for the myofascial component of the patient s pain. It will likely advance to modalities aimed at stabilizing and strengthing the target area while improving range of motion as well. We are also requesting that the physical therapist send notes that will keep our clinic updated to the patient s progress. Follow up in 2 months The medications prescribed have been reviewed for medication interactions/contraindications [...] from this practice. Treatment plans discussed but no opted for at this time: Consider lumbar CT. Patient would like to proceed with the current outlined treatment plan before moving forward with any other options. The spine model was demonstrated and Xray and CT was reviewed and used to explain the condition. OARRS: Reviewed. Scribe Statement: I, Darcie Chow RN, scribed for and in the presence of RUBEN HERNANDEZ who performed the above service. Darcie Chow RN 11/08/24 1003 RUBEN Hernandez 11/08/24 1204 documented in this encounterKettering Health Instructions 11-08-2024 Note Date & VhoaYgerHyugkqtc97-27-4352 Instructions* Patient Instructions* Darcie Chow RN - 11/08/2024 9:00 AM EDT [facility] after completion of physical therapy. documented in this encounterKettering Health History of Present illness Narrative 10-24-2024 Note Date & NrugZnkrMnfeyiyh31-26-4560 History of Present illness Narrative* Tramaine Berry RN - 10/24/2024 8:05 PM EDTSummary: Request for Medical information Pt was see in [facility] recently and is currently at [facility] ED seeking treatment. Request received for medical records from [facility] ED visit. Obtained signed release of medical records form and ED visit records sent to [facility]. documented in this [facility] Evaluation note Note Date & TypeNoteFacilityEvaluation note* Diagnosis Lumbosacral spondylosis without myelopathy- Primary documented in this encounter [facility] Evaluation note Note Date & TypeNoteFacilityEvaluation note* Diagnosis Lumbosacral spondylosis without myelopathy- Primary documented in this encounter [facility] Instructions Note Date & TypeNoteFacilityInstructionsNot on filedocumented in this encounter [facility] Instructions Note Date & TypeNoteFacilityInstructionsNot on filedocumented in this encounter [facility] Summary Purpose Family History No Family History Records FoundNo Family History Records FoundNo Family History Records Found Advance Directives Date ActivatedDate PxvsqdxtjiaSzkfezmz83/21/2021 5:39 PM10 8:50 PMDate ActivatedDate EijemqfyqvlLvlmafxa29/21/2021 5:39 PM10 8:50 PM Additional Source Comments INFORMATION SOURCE (unrecogn ized section and content) DATE CREATED AUTHOR 05/12/2022 [facility] DATE CREATED AUTHOR AUTHOR'S ORGANIZ ATION 10/02/2024 [facility] DATE CREATED AUTHOR AUTHOR'S ORGANIZ ATION 01/09/2025 [facility] Care Teams (unrecognized sec tion and content) Team MemberRelationshipSpecialtyStart DateEnd Date Elyssa Mendoza DO [facility] [place] [address] PCP - GeneralFamily Medicine10/14/22Team MemberRelationshipSpecialtyStart DateEnd Date Cleo Mckeon APRN-CNP [address] [place], [place] [id number] PCP - GeneralNurse Practitioner10/25/24Team MemberRelationshipSpecialtyStart Date End Date Cleo Mckeon APRN-CNP [address] [place] [id number] PCP - GeneralNurse Practitioner10/25/24 Reason for Visit (unrecogniz ed section and content) ReasonCommentsBack PainReasonCommentsBack Pain FOR RECORDS PERTAINING TO PATIENTS WHO ARE [...] BE BASED ON THE PRIMARY CLINICAL RECORDS. [facility]. provides no warranty or guarantee of the accuracy or completeness of information in this document.
[2025-01-18 17:39] VITALS: BP 114/74; PULSE 107; TEMP 38.8; O2SAT 100
[2025-01-18] MEDS: ACETAMINOPHEN 500 MG TABLET 1000 MG PO (18:31)
== END 2025-01-18 18:42 | disposition home or self-care (01) ==
PROVIDERS: Physician Assistant; Emergency Provider Student in an Organized Health Care Education/Training Program; PCP Nurse Practitioner
DX: J06.9 Acute upper respiratory infection, unspecified (principal); R50.9 Fever, unspecified
CPT/HCPCS: 71045; 87070; 87804; 87811; 87880; 99285; J1100